=== PATIENT | female | born 1955 | race Caucasian/White ===

== ENCOUNTER 2017-05-01 14:19 | Emergency (ER) | payer OTHER ==
[2017-05-01] MEDS ORDERED: Sodium Chloride 0.9% 10 ML Syringe FLUSH PRN ×2 (14:35→14:42)
[2017-05-01] MEDS ORDERED: Iopamidol 755 Mg/ML 100 ML Bottle IVPUSH ONE (14:42)
[2017-05-01] MEDS ORDERED: Sodium Chloride 0.9% 100 ML IV SCH (14:45)
--- NOTE | 2017-05-01 15:13 | EDM.PDOC ---
ED HPI GENERAL MEDICAL PROBLEM - General Chief Complaint: Chest Pain Stated Complaint: CHEST TIGHTNESS Time Seen by Provider: 05/01/17 14:23 Source of Information: Reports: Patient History Limitations: Reports: No Limitations - History of Present Illness INITIAL COMMENTS - FREE TEXT/NARRATIVE: 61-year-old female presents for evaluation treatment of chest tightness and shortness of breath. Patient reports that she had a right knee replaced about 4 weeks ago. She then had her left knee replacement 2 weeks ago. She states since this operation she has had chest tightness and shortness of breath. She has seen her primary care provider who put her on an albuterol treatment. They felt that she was overinflated during the surgery. Does not appear that she's had any imaging, EKGs or labs studies done. There patient is currently complaining of chest tightness and shortness of breath. Has a feeling of difficulty catching her breath. She recently started coughing. She denies any pain or swelling in her legs. She is from [place], [place] and drove she [place] late last week for a . Patient presented to the ER today as she feels she is more confused than normal. She has difficulty with word finding and recalling recent events. She reports some tingling in her right hand. No headaches. Reports some soreness in her neck. No syncope, dizziness, diaphoresis, nausea or vomiting. Onset: Today (confusion), Other (chest pain and shortness of breath x 2 weeks) Location: Reports: Chest Middle Chest Pain Score (Numeric/FACES): 6 - Related Data Allergies Allergy/AdvReac Type Severity Reaction Status Date / Time Sulfa (Sulfonamide Allergy Nausea Verified 05/01/17 14:33 Antibiotics) Home Meds: Home Meds Glatiramer Acetate [Copaxone] 40 mg SQ ASDIRECTED 05/01/17 [History] Levothyroxine Sodium [Synthroid] 125 mcg PO DAILY 05/01/17 [History] Ondansetron [Zofran ODT] 4 mg PO Q6H PRN 05/01/17 [History] Past Medical History Neurological History: Reports: MS Endocrine/Metabolic History: Reports: Hypothyroidism - Past Surgical History Musculoskeletal Surgical History: Reports: Knee Replacement Social & Family History - Tobacco Use Smoking Status *Q: Never Smoker - Recreational Drug Use Recreational Drug Use: No ED ROS GENERAL - Review of Systems Review Of Systems: See Below Constitutional: Denies: Fever, Diaphoresis Respiratory: Reports: Shortness of Breath, Cough Cardiovascular: Reports: Chest Pain. Denies: Edema GI/Abdominal: Reports: Abdominal Pain (upper abdomen ). Denies: Nausea, Vomiting Musculoskeletal: Reports: Neck Pain (soreness). Denies: Leg Pain Neurological: Reports: Tingling (right arm). Denies: Numbness, Syncope ED EXAM, GENERAL - Physical Exam Exam: See Below Exam Limited By: No Limitations General Appearance: Alert, WD/WN, Anxious Eye Exam: Bilateral Eye: EOMI, PERRL Ears: Normal External Exam Nose: Normal Inspection Throat/Mouth: Normal Inspection, Normal Voice, No Airway Compromise Neck: Normal Inspection, Full Range of Motion Respiratory/Chest: No Respiratory Distress, Lungs Clear, Normal Breath Sounds Cardiovascular: Normal Peripheral Pulses, Regular Rate, Rhythm, No Murmur Peripheral Pulses: 2+: Radial (L), Radial (R), Posterior Tibial (L), Posterior Tibial (R) GI/Abdominal: Soft, Tender (generalized) Neurological: Alert, Oriented, CN II-XII Intact, Normal Gait, Memory Loss Recent Events (trouble remembering some recent events but also had trouble with word fingding; could not recall her daughters name), Other (normal finger to nose testing, normal heel to oliva testing, no pronator drift, production corrugator 4/4 bilaterally, dorsiflexion 5/5 bilaterally, plantarflexion 5/5 bilaterally, no slurred speech, no facial droop ) Psychiatric: Normal Affect, Anxious Skin Exam: Warm, Dry, Normal Color EKG INTERPRETATION EKG Date: 05/01/17 Time: 14:25 Rhythm: NSR Rate (Beats/Min): 82 [place]: Normal P-Wave: Present QRS: Normal ST-T: Normal QT: Normal Comparison: NA - No Prior EKG EKG Interpretation Comments: NSR at 82 bpm. No acute changes. Reviewed by myself and Dr. Kwan. Course - Vital Signs Last Recorded V/S: Last Vital Signs Temp 36.7 C 05/01/17 14:24 Pulse 82 05/01/17 14:24 Resp 16 05/01/17 14:24 BP Pulse Ox 96 05/01/17 14:24 - Orders/Labs/Meds Orders: Active Orders 24 hr Category Date Time Status Cardiac Monitoring [RC] . DIRECTED Care 05/01/17 14:35 Active EKG 12 Lead [EKG Documentation Completion] [RC] STAT Care 05/01/17 14:47 Active Peripheral IV Care [RC] . DIRECTED Care 05/01/17 14:36 Active RT Incentive Spirometry [RC] ASDIRECTED Care 05/01/17 16:13 Active Peripheral IV Insertion Adult [OM.PC] Routine Oth 05/01/17 14:35 Ordered Labs: Laboratory Tests 05/01/17 05/01/17 05/01/17 Range/Units 14:40 14:40 14:40 WBC 8.45 (3.98-10.04) K/mm3 RBC 4.50 (3.98-5.22) M/mm3 Hgb 13.2 (11.2-15.7) gm/L Hct 40.3 (34.1-44.9) % MCV 89.6 (79.4-94.8) fl MCH 29.3 (25.6-32.2) pg MCHC 32.8 (32.2-35.5) g/dl RDW Std Deviation 44.2 (36.4-46.3) fL Plt Count 246 (182-369) K/mm3 MPV 9.2 L (9.4-12.3) fl Neutrophils % (Manual) 78 H (40-60) % Band Neutrophils % 0 (0-10) % Lymphocytes % (Manual) 17 L (20-40) % Atypical Lymphs % 0 % Monocytes % (Manual) 5 (2-10) % Eosinophils % (Manual) 0 L (0.7-5.8) % Basophils % (Manual) 0 L (0.1-1.2) Platelet Estimate Adequate RBC Morph Comment Normal PT 10.3 (8.0-13.0) SECONDS INR 0.95 APTT 25 (22-36) SECONDS D-Dimer, Quantitative 0.31 (0.19-0.59) mg/L Sodium 141 (136-145) mEq/L Potassium 3.6 (3.5-5.1) mEq/L Chloride 106 (98-107) mEq/L Carbon Dioxide 29 (21-32) mEq/L Anion Gap 9.6 (5-15) BUN 19 H (7-18) mg/dL Creatinine 0.8 (0.55-1.02) mg/dL Est Cr Clr Drug Dosing 61.86 mL/min Estimated GFR (MDRD) > 60 (>60) mL/min BUN/Creatinine Ratio 23.8 H (14-18) Glucose 120 H (74-106) mg/dL Calcium 9.3 (8.5-10.1) mg/dL Total Bilirubin 0.5 (0.2-1.0) mg/dL AST 22 (15-37) U/L ALT 22 (14-59) U/L Alkaline Phosphatase 89 (46-116) U/L CK-MB (CK-2) 1.1 (0-3.6) ng/ml Troponin I < 0.017 (0.00-0.056) ng/mL Total Protein 6.9 (6.4-8.2) g/dl Albumin 3.8 (3.4-5.0) g/dl Globulin 3.1 gm/dL Albumin/Globulin Ratio 1.2 (1-2) Urine Color (Yellow) Urine Appearance (Clear) Urine pH (5.0-8.0) Ur Specific [place] (1.005-1.030) Urine Protein (Negative) Urine Glucose (UA) (Negative) Urine Ketones (Negative) Urine Occult Blood (Negative) Urine Nitrite (Negative) Urine Bilirubin (Negative) Urine Urobilinogen (0.2-1.0) Ur Leukocyte Esterase (Negative) Urine RBC (0-5) /hpf Urine WBC (0-5) /hpf Ur Epithelial Cells (0-5) /hpf Urine Bacteria (FEW) /hpf Urine Mucus (FEW) /hpf 05/01/17 Range/Units 14:45 WBC (3.98-10.04) K/mm3 RBC (3.98-5.22) M/mm3 Hgb (11.2-15.7) gm/L Hct (34.1-44.9) % MCV (79.4-94.8) fl MCH (25.6-32.2) pg MCHC (32.2-35.5) g/dl RDW Std Deviation (36.4-46.3) fL Plt Count (182-369) K/mm3 MPV (9.4-12.3) fl Neutrophils % (Manual) (40-60) % Band Neutrophils % (0-10) % Lymphocytes % (Manual) (20-40) % Atypical Lymphs % % Monocytes % (Manual) (2-10) % Eosinophils % (Manual) (0.7-5.8) % Basophils % (Manual) (0.1-1.2) Platelet Estimate RBC Morph Comment PT (8.0-13.0) SECONDS INR APTT (22-36) SECONDS D-Dimer, Quantitative (0.19-0.59) mg/L Sodium (136-145) mEq/L Potassium (3.5-5.1) mEq/L Chloride (98-107) mEq/L Carbon Dioxide (21-32) mEq/L Anion Gap (5-15) BUN (7-18) mg/dL Creatinine (0.55-1.02) mg/dL Est Cr Clr Drug Dosing mL/min Estimated GFR (MDRD) (>60) mL/min BUN/Creatinine Ratio (14-18) Glucose (74-106) mg/dL Calcium (8.5-10.1) mg/dL Total Bilirubin (0.2-1.0) mg/dL AST (15-37) U/L ALT (14-59) U/L Alkaline Phosphatase (46-116) U/L CK-MB (CK-2) (0-3.6) ng/ml Troponin I (0.00-0.056) ng/mL Total Protein (6.4-8.2) g/dl Albumin (3.4-5.0) g/dl Globulin gm/dL Albumin/Globulin Ratio (1-2) Urine Color Yellow (Yellow) Urine Appearance Clear (Clear) Urine pH 6.0 (5.0-8.0) Ur Specific [place] > or = 1.030 (1.005-1.030) Urine Protein Negative (Negative) Urine Glucose (UA) Negative (Negative) Urine Ketones Negative (Negative) Urine Occult Blood Negative (Negative) Urine Nitrite Negative (Negative) Urine Bilirubin Negative (Negative) Urine Urobilinogen 0.2 (0.2-1.0) Ur Leukocyte Esterase Negative (Negative) Urine RBC 0-5 (0-5) /hpf Urine WBC 0-5 (0-5) /hpf Ur Epithelial Cells 0-5 (0-5) /hpf Urine Bacteria Few (FEW) /hpf Urine Mucus Few (FEW) /hpf Meds: Medications Discontinued Medications Generic Name Dose Route Start Last Admin Trade Name Mark PRN Reason Stop Dose Admin Sodium Chloride 100 mls @ 65 mls/hr 05/01/17 14:45 05/01/17 15:08 Normal Saline IV 65 mls/hr ASDIRECTED TYRON Administration Iopamidol 100 ml 05/01/17 14:42 05/01/17 15:08 [id number] (76%) IVPUSH 05/01/17 14:43 100 ml ONETIME ONE Administration Sodium Chloride 10 ml 05/01/17 14:35 05/01/17 14:40 Saline Flush FLUSH 10 ml ASDIRECTED PRN Administration Keep Vein Open Sodium Chloride 10 ml 05/01/17 14:42 05/01/17 15:08 Saline Flush FLUSH 10 ml ONETIME PRN Administration IV FLUSH - Radiology Interpretation Free Text/Narrative:: CT pulmonary angiogram impression per Dr. Novak: 1. No findings of PE. Other portions of the chest CT study of the chest are also within normal limits. - Re-Assessments/Exams Free Text/Narrative Re-Assessment/Exam: 05/01/17 16:14 I reviewed the chest CT, EKG and lab results with the patient. I personally believe this is most likely anxiety related. She has had 2 surgeries recently and she is in [place] for . It is also possible that this is chest wall related. She may have something like costochondritis or a pulled intercostal muscle after surgery. She would like to try an incentive spirometer. She has albuterol at home. She has pain medicine at home. I will have her try incentive spirometer and have her follow-up with her primary care provider when she returns home this week. Discharge instructions as documented. Departure - Departure Time of Disposition: 16:12 Disposition: Home, Self-Care 01 Condition: Fair Clinical Impression: Chest wall pain following surgery Instructions: Chest Wall Pain Referrals: PCP,Not In Area [Primary Care Provider] - Forms: ED Department Discharge Additional Instructions: Continue using [id number] Tylenol, Motrin or your pain medicine as needed for discomfort. May want to try heat to the chest for additional relief. You may try the incentive spirometer. Continue with the albuterol inhaler as needed. Please return to the ER if your symptoms change or worsen. Follow-up with your primary care provider for recheck of your symptoms this week. - My Orders Last 24 Hours: My Active Orders 05/01/17 14:35 Cardiac Monitoring [RC] . DIRECTED Peripheral IV Insertion Adult [OM.PC] Routine 05/01/17 14:36 Peripheral IV Care [RC] . DIRECTED 05/01/17 14:47 EKG 12 Lead [EKG Documentation Completion] [RC] STAT 05/01/17 16:13 RT Incentive Spirometry [RC] ASDIRECTED - Assessment/Plan Last 24 Hours: My Active Orders 05/01/17 14:35 Cardiac Monitoring [RC] . DIRECTED Peripheral IV Insertion Adult [OM.PC] Routine 05/01/17 14:36 Peripheral IV Care [RC] . DIRECTED 05/01/17 14:47 EKG 12 Lead [EKG Documentation Completion] [RC] STAT 05/01/17 16:13 RT Incentive Spirometry [RC] ASDIRECTED
--- NOTE | 2017-05-01 15:24 | CT ---
CT chest Technique: Multiple axial sections through the chest were obtained. Intravenous contrast was utilized. Study performed as a pulmonary angiogram protocol. Findings: Pulmonary arteries are well-opacified. No filling defects are seen to indicate pulmonary embolism. Mediastinum and hilar regions show no adenopathy or mass. No pericardial thickening is seen. Small portion of the upper abdominal structures are grossly unremarkable. Lung window settings were reviewed which appears within normal limits. No pleural effusions or pneumothorax is seen. Bone window settings were reviewed which shows no acute bony abnormality. Impression: 1. No findings of pulmonary embolism. Other portions of the CT study of the chest are also within normal limits. Diagnostic code #1
== END 2017-05-01 16:34 | disposition home or self-care (01) ==
LOC: JD.ED 14:19
DX: G89.18 Other acute postprocedural pain (principal); R07.89 Other chest pain; G35 Multiple sclerosis; E03.9 Hypothyroidism, unspecified; Z96.659 Presence of unspecified artificial knee joint; Z79.899 Other long term (current) drug therapy; Z88.2 Allergy status to sulfonamides
CPT/HCPCS: 36415; 71275; 80053; 81001; 82553; 84484; 85025; 85379; 85610; 85730; 93005; 99285; J7030; J7050; Q9967; 99284

== ENCOUNTER 2021-06-01 19:39 | Emergency (ER) | payer OTHER ==
[2021-06-01 19:54] VITALS: BP 115/76; PULSE 81
--- NOTE | 2021-06-01 20:13 | EDM.PDOC ---
ED HPI GENERAL MEDICAL PROBLEM - General Chief Complaint: Respiratory Problem Stated Complaint: SOB/FEVER Time Seen by Provider: 06/01/21 19:53 Source of Information: Reports: Patient History Limitations: Reports: No Limitations - History of Present Illness INITIAL COMMENTS - FREE TEXT/NARRATIVE: Mrs. Farah is a very pleasant 65-year-old woman who now presents the ED stating that she has had 3 days of a nonproductive cough, dyspnea, subjective fever, headache, and abdominal pain, whenever she coughs severely. She also reports having some dysuria since yesterday, although no urinary frequency or urgency. No recent nausea, vomiting, constipation, or diarrhea. The patient states that she has been taking Mucinex, applying Vicks VapoRub, and inhaling a Vicks vaporizer, with some relief of her symptoms. She states that her granddaughter has had similar symptoms for a similar period of time. Here in the ED, the patient is found to be hemodynamically stable, afebrile, saturating 97% on room air. She appears to be comfortable, in no acute distress. Prior to 3 days ago, the patient denies having a recent fever, chills, sore throat, ear pain, nasal or sinus congestion, cough, dyspnea, chest pain, palpitations, nausea, vomiting, constipation, diarrhea, abdominal pain, urinary symptoms, recent weight gain or weight loss, recent bloody bowel movements or black bowel movements, recent joint aches, headaches, or rashes. The patient's PCP is through the [place]. She and her recently moved here from [place]. She states that she has received 2 COVID vaccinations. Lower Abdomen Pain Score (Numeric/FACES): 8 - Related Data Allergies Allergy/AdvReac Type Severity Reaction Status Date / Time Sulfa (Sulfonamide AdvReac Severe Nausea Verified 06/01/21 19:54 Antibiotics) Home Meds: Home Meds Levothyroxine Sodium [Synthroid] 125 mcg PO DAILY 05/01/17 [History] Past Medical History Musculoskeletal History: Reports: Osteoarthritis Neurological History: Reports: MS Psychiatric History: Reports: Other (See Below) (Restless leg syndrome) Endocrine/Metabolic History: Reports: Hypothyroidism - Past Surgical History Female Surgical History: Reports: Hysterectomy (coomplete) Musculoskeletal Surgical History: Reports: Knee Replacement (bilateral), Shoulder Surgery (right, arthroscopic) Social & Family History - Tobacco Use Tobacco Use Status *Q: Never Tobacco User - Caffeine Use Caffeine Use: Reports: None - Alcohol Use Alcohol Use History: Yes Alcohol Use Frequency: Rarely - Recreational Drug Use Recreational Drug Use: No - Living Situation & Occupation Living situation: Reports: , with Spouse Occupation: Retired ED ROS GENERAL - Review of Systems Review Of Systems: Comprehensive ROS is negative, except as noted in HPI. ED EXAM, GENERAL - Physical Exam Exam: See Below Exam Limited By: No Limitations General Appearance: Alert, No Apparent Distress, Thin Eye Exam: Bilateral Eye: EOMI, Normal Inspection Ears: Normal External Exam, Hearing Grossly Normal Nose: Normal Inspection Throat/Mouth: Normal Inspection, Normal Lips, Normal Voice, No Airway Compromise Head: Atraumatic, Normocephalic Neck: Normal Inspection, Full Range of Motion Respiratory/Chest: No Respiratory Distress, Lungs Clear, Normal Breath Sounds, N o Accessory Muscle Use Cardiovascular: Normal Peripheral Pulses, Regular Rate, Rhythm, No Edema, No Gallop, No JVD, No Murmur, No Rub Peripheral Pulses: 3+: Radial (L), Radial (R) GI/Abdominal: Normal Bowel Sounds, Soft, No Organomegaly, No Distention, No Abnormal Bruit, No Mass, Tender (Mild, generalized, non-focal) Back Exam: Normal Inspection, Full Range of Motion, NT Extremities: Normal Inspection, Normal Range of Motion, No Pedal Edema, Normal Capillary Refill Neurological: Alert, Oriented, Normal Cognition, No Motor/Sensory Deficits Psychiatric: Normal Affect Skin Exam: Warm, Dry, Intact, Normal Color, No Rash Course - Vital Signs Last Recorded V/S: Last Vital Signs Temp 36.6 C 06/01/21 19:51 Pulse 81 06/01/21 19:51 Resp 14 06/01/21 19:51 BP 115/76 06/01/21 19:51 Pulse Ox 97 06/01/21 19:51 - Orders/Labs/Meds Labs: Laboratory Tests 06/01/21 06/01/21 06/01/21 Range/Units 20:15 20:20 20:25 WBC (3.98-10.04) K/mm3 RBC (3.98-5.22) M/mm3 Hgb (11.2-15.7) gm/dl Hct (34.1-44.9) % MCV (79.4-94.8) fl MCH (25.6-32.2) pg MCHC (32.2-35.5) g/dl RDW Std Deviation (36.4-46.3) fL Plt Count (182-369) K/mm3 MPV (9.4-12.3) fl Neut % (Auto) (34.0-71.1) % Lymph % (Auto) (19.3-51.7) % [place] % (Auto) (4.7-12.5) % Eos % (Auto) (0.7-5.8) Baso % (Auto) (0.1-1.2) % Neut # (Auto) (1.56-6.13) K/mm3 Lymph # (Auto) (1.18-3.74) K/mm3 [place] # (Auto) (0.24-0.36) K/mm3 Eos # (Auto) (0.04-0.36) K/mm3 Baso # (Auto) (0.01-0.08) K/mm3 Sodium 142 (136-145) mEq/L Potassium 3.7 (3.5-5.1) mEq/L Chloride 104 (98-107) mEq/L Carbon Dioxide 28 (21-32) mEq/L Anion Gap 13.7 (5-15) BUN 19 H (7-18) mg/dL Creatinine 0.9 (0.55-1.02) mg/dL Est Cr Clr Drug Dosing 46.21 mL/min Estimated GFR (MDRD) > 60 (>60) mL/min BUN/Creatinine Ratio 21.1 H (14-18) Glucose 97 (70-99) mg/dL Calcium 8.7 (8.5-10.1) mg/dL Total Bilirubin 0.5 (0.2-1.0) mg/dL AST 24 (15-37) U/L ALT 23 (14-59) U/L Alkaline Phosphatase 86 (46-116) U/L C-Reactive Protein 0.9 (<1.0) mg/dL Total Protein 7.4 (6.4-8.2) g/dl Albumin 3.9 (3.4-5.0) g/dl Globulin 3.5 gm/dL Albumin/Globulin Ratio 1.1 (1-2) Urine Color Yellow (Yellow) Urine Appearance Clear (Clear) Urine pH 7.0 (5.0-8.0) Ur Specific [place] 1.020 (1.005-1.030) Urine Protein Negative (Negative) Urine Glucose (UA) Negative (Negative) Urine Ketones Negative (Negative) Urine Occult Blood Negative (Negative) Urine Nitrite Negative (Negative) Urine Bilirubin Negative (Negative) Urine Urobilinogen 0.2 (0.2-1.0) Ur Leukocyte Esterase Negative (Negative) Urine RBC >100 H (0-5) /hpf Urine WBC 0-5 (0-5) /hpf Ur Squamous Epith Cells 0-5 (0-5) /hpf Urine Bacteria Moderate H (FEW) /hpf Urine Mucus Not seen (FEW) /hpf Influenza Type A RNA Negative (NEGATIVE) Influenza Type B RNA Negative (NEGATIVE) SARS-CoV-2 RNA (PRASHANTH) Negative (NEGATIVE) 06/01/21 Range/Units 20:25 WBC 8.76 (3.98-10.04) K/mm3 RBC 4.63 (3.98-5.22) M/mm3 Hgb 13.7 (11.2-15.7) gm/dl Hct 43.0 (34.1-44.9) % MCV 92.9 D (79.4-94.8) fl MCH 29.6 (25.6-32.2) pg MCHC 31.9 L (32.2-35.5) g/dl RDW Std Deviation 44.9 (36.4-46.3) fL Plt Count 272 (182-369) K/mm3 MPV 8.9 L (9.4-12.3) fl Neut % (Auto) 70.1 (34.0-71.1) % Lymph % (Auto) 17.9 L (19.3-51.7) % [place] % (Auto) 10.4 (4.7-12.5) % Eos % (Auto) 0.8 (0.7-5.8) Baso % (Auto) 0.6 (0.1-1.2) % Neut # (Auto) 6.14 H (1.56-6.13) K/mm3 Lymph # (Auto) 1.57 (1.18-3.74) K/mm3 [place] # (Auto) 0.91 H (0.24-0.36) K/mm3 Eos # (Auto) 0.07 (0.04-0.36) K/mm3 Baso # (Auto) 0.05 (0.01-0.08) K/mm3 Sodium (136-145) mEq/L Potassium (3.5-5.1) mEq/L Chloride (98-107) mEq/L Carbon Dioxide (21-32) mEq/L Anion Gap (5-15) BUN (7-18) mg/dL Creatinine (0.55-1.02) mg/dL Est Cr Clr Drug Dosing mL/min Estimated GFR (MDRD) (>60) mL/min BUN/Creatinine Ratio (14-18) Glucose (70-99) mg/dL Calcium (8.5-10.1) mg/dL Total Bilirubin (0.2-1.0) mg/dL AST (15-37) U/L ALT (14-59) U/L Alkaline Phosphatase (46-116) U/L C-Reactive Protein (<1.0) mg/dL Total Protein (6.4-8.2) g/dl Albumin (3.4-5.0) g/dl Globulin gm/dL Albumin/Globulin Ratio (1-2) Urine Color (Yellow) Urine Appearance (Clear) Urine pH (5.0-8.0) Ur Specific [place] (1.005-1.030) Urine Protein (Negative) Urine Glucose (UA) (Negative) Urine Ketones (Negative) Urine Occult Blood (Negative) Urine Nitrite (Negative) Urine Bilirubin (Negative) Urine Urobilinogen (0.2-1.0) Ur Leukocyte Esterase (Negative) Urine RBC (0-5) /hpf Urine WBC (0-5) /hpf Ur Squamous Epith Cells (0-5) /hpf Urine Bacteria (FEW) /hpf Urine Mucus (FEW) /hpf Influenza Type A RNA (NEGATIVE) Influenza Type B RNA (NEGATIVE) SARS-CoV-2 RNA (PRASHANTH) (NEGATIVE) - Re-Assessments/Exams Free Text/Narrative Re-Assessment/Exam: 06/01/21 20:11 I have ordered several blood tests, a urinalysis, a swab for the SARS-CoV-2 virus, and a portable chest x-ray. 06/01/21 21:01 2-view chest x-ray is read by Dr. Novak as: 1. Findings as described above. 2. Nothing acute is appreciated on frontal chest x-ray. 06/01/21 22:09 The patient's CBC is unremarkable. Her CMP is remarkable for a BUN slightly elevated at 19, but with a Cr normal at 0.9, and the remainder of her CMP being unremarkable. Her CRP is within normal limits at 0.4. Her swab for the SARS-CoV-2 virus and influenza A + B viruses is negative for both. Her urinalysis is remarkable for negative occult blood, but with >100 RBCs, leukocyte esterase negative with 0-5 WBCs, and nitrate negative with moderate bacteria. 06/01/21 22:16 Test results discussed with the patient. As above, today's work-up is grossly unremarkable. I explained that it is possible to tested negative for the SARS-CoV-2 virus, even if the patient has COVID-19, especially early in the course of the illness. I therefore recommended that she get retested on Sunday. Until then, she should isolate. With respect to the patient's dysuria, her urinalysis is abnormal, but not entirely consistent with a UTI. I have ordered a urine culture. If her dysuria persists, I would like her to follow-up with Dr. Cole at the [facility]. Departure - Departure Time of Disposition: 22:18 Disposition: Home, Self-Care 01 Condition: Good Clinical Impression: Cough, Dysuria - Discharge Information *PRESCRIPTION DRUG MONITORING PROGRAM REVIEWED*: Not Applicable *COPY OF PRESCRIPTION DRUG MONITORING REPORT IN PATIENT MADELYN: Not Applicable Referrals: Lesvia Cole MD [Primary Care Provider] - Forms: ED Department Discharge Additional Instructions: You were seen in the emergency room for 3 days of a dry cough, shortness of breath, feeling feverish, headache, and abdominal pain when you cough, along with some painful urination since yesterday. Work-up in the ER included several blood tests, a urinalysis, a swab for the SARS-CoV-2 virus and influenza A + B viruses, and a chest x-ray. Your entire work-up was unremarkable, and does not explain the cause of your symptoms. Based on your history, physical exam, and ER tests, you are most likely suffering from a viral illness. As discussed, we recommend that you not take any [id number] cough or cold remedies, as they have been shown to be of no benefit, but do have side effects, such as an upset stomach. Stay adequately hydrated. It does not really matter what type of fluid you drink. As discussed, it is possible to test negative for the SARS-CoV-2 virus, even if you have COVID-19, especially early in the course of the illness. For that reason, we recommend that you get retested this coming 06/03/2021. Until then, we recommend that you isolate. If your painful urination continues, please follow-up with your PCP, Dr. Lesvia Cole, at the [facility]. If any other problems, please do not hesitate to return to the ER. Sepsis Event Note (ED) - Evaluation Sepsis Screening Result: No Definite Risk - Focused Exam Vital Signs: Vital Signs Temp Pulse Resp BP Pulse Ox 06/01/21 19:51 36.6 C 81 14 115/76 97
--- NOTE | 2021-06-01 20:46 | CR ---
Chest: Frontal view of the chest was obtained. Comparison: Prior chest CT performed on 05/01/17. Heart size and mediastinum are within normal limits. Lungs are clear with no acute parenchymal change. Scoliosis is noted within the spine with scattered degenerative change. Bony structures are also osteopenic. Impression: 1. Findings as described above. 2. Nothing acute is appreciated on frontal chest x-ray. Diagnostic code #2
[2021-06-01 21:08] LABS: CORONAVIRUS COVID-19 NAA NEGATIVE (NEGATIVE)
== END 2021-06-01 22:32 | disposition home or self-care (01) ==
LOC: JD.ED 19:39
DX: R05.9 Cough, unspecified (principal); R30.0 Dysuria; E03.9 Hypothyroidism, unspecified; Z88.2 Allergy status to sulfonamides; Z79.899 Other long term (current) drug therapy; Z20.822 Contact with and (suspected) exposure to COVID-19
CPT/HCPCS: 0240U; 36415; 71045; 80053; 81001; 85025; 86140; 87086; 99284